=== PATIENT | female | born 1950 | race Caucasian/White ===

== ENCOUNTER 2017-01-16 19:32 | Inpatient (IN) ==
[2017-01-16] MEDS ORDERED: ASPIRIN PO STA (19:52)
[2017-01-16 20:02] LABS: MANUAL DIFF NEEDED? NO
[2017-01-16 20:07] LABS: BASO% 0.2 % (0.0-0.8); EOS# 0.15 X1000 (0.0-0.7); EOS% 1.3 % (0.0-10.0); HEMATOCRIT 31.4 % (37.0-47.0); HEMOGLOBIN 9.8 g/dL (12.0-16.0); IMM GRAN# 0.03 X1000 (0.0-0.04); IMM GRAN% 0.3 % (0.0-0.5); LYMPH# 0.99 X1000 (1.2-3.4); LYMPH% 8.7 % (20.5-51.1); MCH 28.1 PG (27-31); MCHC 31.2 g/dL (33-37); MONO# 1.27 X1000 (0.11-0.59); MONO% 11.2 % (1.7-9.3); MPV 10.5 FL (7.4-10.4); NEUT% 78.3 % (42.2-75.2); PLT 137 X1000 (130-400); RBC 3.49 XMIL (4.2-5.4)
[2017-01-16 20:23] LABS: ALBUMIN 3.7 g/dL (3.5-5.0); CALCIUM 9.5 mg/dL (8.8-10.2); INR 0.93 (0.86-1.15); MAGNESIUM 2.1 mg/dL (1.5-2.7); POTASSIUM 3.8 mmol/L (3.5-5.1); PROTIME 13.2 Seconds (12.1-15.5); TOTAL BILIRUBIN 0.4 mg/dL (0.20-1.00); TOTAL PROTEIN 7.4 g/dL (6.3-8.3)
[2017-01-16 20:24] LABS: PTT PL 31.6 Seconds (22.6-43.9)
--- NOTE | 2017-01-16 20:30 | Diag Imaging Result Doc PS360 ---
CHEST-2 VIEWS - 01/16/2017 INDICATION: CP TECHNIQUE: COMPARISON: None FINDINGS: There is a right dialysis catheter with the distal tip at the cavoatrial junction. Lung volumes are low. There is left lower lobe infiltrate in the posterior costophrenic angle best seen on the lateral view. Heart size and pulmonary vascularity are top normal. No pneumothorax or large effusion. IMPRESSION: Left lower lobe infiltrate compatible with pneumonia. Electronically signed by Jason Terrell 01/16/2017 8:28 PM
[2017-01-16] MEDS ORDERED: MORPHINE IV ONE ×2 (20:49→22:39)
[2017-01-16] MEDS ORDERED: ZOFRAN IV ONE (20:49)
[2017-01-16] MEDS ORDERED: SOLU-MEDROL IV ONE (20:56)
[2017-01-16] MEDS ORDERED: SODIUM CHLORIDE 0.9% INJ ONE (20:56)
[2017-01-16] MEDS ORDERED: BENADRYL IV ONE (20:56)
[2017-01-16] MEDS ORDERED: PEPCID IV ONE (20:56)
--- NOTE | 2017-01-16 22:21 | EKG Report ---
Test Performed on : 01/16/2017 7:35:35 PM Test Reason : CHEST PAIN Blood Pressure : / mmHG Vent. Rate : 089 BPM Atrial Rate : 089 BPM P-R Int : 126 ms QRS Dur : 074 ms QT Int : 342 ms P-R-T Axes : 054 045 066 degrees QTc Int : 416 ms Normal sinus rhythm. Cannot rule out Anterior infarct , age undetermined Abnormal ECG No previous ECGs available Unconfirmed Result
[2017-01-16] MEDS ORDERED: ROCEPHIN 1 GM in NS 50 ML IV ONE (22:39)
[2017-01-16] MEDS ORDERED: ZITHROMAX 500 MG/NS 500 MG/250 ML IVPB IV ONE (22:39)
--- NOTE | 2017-01-16 23:37 | PROVIDER DOCUMENTATION ---
This chart was entered by Belia Huggins Scribe, acting as scribe for Gomez Crowe MD. HPI-Chest Pain - General Chief Complaint: Chest Pain Stated Complaint: CHEST PAIN Time Seen by Provider: 01/16/17 19:59 Source: patient Allergies/Adverse Reactions: Patient Allergies Allergy/AdvReac Type Severity Reaction Status Date / Time Iodinated Contrast- Oral and Allergy ANAPHYLAXIS Verified 01/16/17 19:44 IV Dye [IV Dye] Home Medications: Home Medication List Medication Instructions Recorded Confirmed Last Taken Type Ergocalciferol (Vitamin D2) 01/16/17 Unknown History [Vitamin D] Ondansetron HCl [Ondansetron HCl] 01/16/17 Unknown History Pantoprazole Sodium [Pantoprazole 01/16/17 Unknown History Sodium] Potassium Chloride 01/16/17 Unknown History Sertraline HCl [Sertraline HCl] 01/16/17 Unknown History Sirolimus [Sirolimus] 01/16/17 Unknown History Ursodiol [Ursodiol] 01/16/17 Unknown History Voriconazole [Vfend] 01/16/17 Unknown History - History of Present Illness-CP Nature of Presenting Problem: pt complains of left shoulder, neck, arm, and lower rib pain x 2-3 days, pt has chronic shortness of breath denies any worsening, no nausea/vomiting, no chest pain, no fevers benign exam Location: reports: shoulder, other (left arm, shoulder, neck and lower rib pain) Chest Pain Radiation: reports: no radiation Quality of Pain: reports: aching Severity in ED: moderate Onset/Duration: 2 days ago Timing: still present Context/Activities at Onset: reports: light activity Modifying Factors: worse with: analgesics, cold/heat therapy, movement Associated Symptoms: reports: shortness of breath (chronic shortness of breath, no worsening). denies: abdominal pain, back pain, dizziness, fever/chills, headache, nausea Nitro Today/Relief: no nitro taken today Aspirin Treatment Today: no aspirin today Prior Chest Pain/Cardiac Workup: reports: no prior chest pain Similar Symptoms Previously?: No Recently Seen Here or By Another Healthcare Provider: No Review of Systems - Adult - REVIEW OF SYSTEMS - ADULT Constitutional: denies: fever Eyes: denies: decreased vision, blurred vision, double vision Ears, Nose, Mouth & Throat: reports: no symptoms reported Cardiovascular: denies: chest pain, syncope Respiratory: reports: shortness of breath. denies: cough Gastrointestinal: denies: abdominal pain, nausea, vomiting Genitourinary: denies: dysuria, frequency Musculoskeletal: reports: neck pain. denies: back pain, muscle aches Integumentary: denies: itching, rash Neurological: denies: dizziness/vertigo, headache/migraines Psychiatric: reports: no symptoms reported Endocrine: reports: no symptoms reported Hematologic/Lymphatic: reports: no symptoms reported Allergic/Immunologic: reports: no symptoms reported All Other Systems: Reviewed and Negative Past History - Adult - PAST MEDICAL HISTORY-ADULT Review of Records: reports: Old Records Reviewed, Nursing Assessment Review, Medications Reviewed, Social history reviewed & non-contributory. Major Childhood Illnesses: reports: denies history Cardiovascular: reports: denies history Respiratory: reports: denies history Gastrointestinal: reports: denies history Obstetrical/Gynecological: reports: denies history Genitourinary: reports: denies history Musculoskeletal: reports: denies history Neurological: reports: denies history Endocrine/Immune: reports: denies history Other Conditions: reports: denies history - IMMUNIZATION STATUS Childhood Immunizations: See Nurse Assessment Flu Vaccine: See Nurse Assessment - FAMILY HISTORY Family History: reviewed, not pertinent Physical Exam-General - PHYSICAL EXAM-ADULT Initial Vital Signs Reviewed: Yes - CONSTITUTIONAL General Appearance: appears well, alert, no apparent distress - EYES Eyes: PERRL/EOMI - HEAD, EARS, NOSE, MOUTH & THROAT HENMT: normocephalic/atraumatic, moist mucous membranes, normal ENT inspection - NECK Neck: non-tender, full range of motion, supple, normal inspection - RESPIRATORY Respiratory: chest non-tender, lungs clear, normal breath sounds, no pleuratic chest pain, no respiratory distress, no accessory muscle use - CARDIOVASCULAR Cardiovascular: normal peripheral pulses, regular rate, rhythm - GASTROINTESTINAL (ABDOMEN) Abdominal Exam: normal bowel sounds, non tender, soft - LYMPHATIC Lymphatic: no adenopathy - MUSCULOSKELETAL Back Exam: normal inspection, no CVA tenderness, no vertebral tenderness Extremity: normal range of motion, non-tender, normal gait, normal inspection - SKIN Integumentary: normal color, normal turgor, warm/dry - NEUROLOGIC Neurologic: grossly normal - PSYCHIATRIC Psych/Mental Status: normal mood/affect Progress - PLAN OF CARE/RESULTS Progress/Plan/Lab Results: Vital Signs - 8 hr 01/16/17 19:34 01/16/17 23:16 Temperature 99.7 F H Pulse Rate 93 H 79 Respiratory Rate 23 14 Blood Pressure 174/115 133/94 O2 Sat by Pulse Oximetry 95 96 Laboratory Results - last 24 hr 01/16/17 01/16/17 01/16/17 19:41 19:41 19:41 WBC RBC Hgb Hct MCV MCH MCHC RDW Std Deviation Plt Count MPV Immature Gran % (Auto) Neut % (Auto) Lymph % (Auto) [place] % (Auto) Eos % (Auto) Baso % (Auto) Immature Gran # (Auto) Neut # (Auto) Lymph # (Auto) [place] # (Auto) Eos # (Auto) Baso # (Auto) PT INR APTT (Factor Assay) Sodium 133 L Potassium 3.8 Chloride 96 L Carbon Dioxide 23 L Anion Gap 14 BUN 21 Creatinine 1.7 H Estimated GFR/1.73 m2 30 BUN/Creatinine Ratio 12 Glucose 170 H Calculated Osmolality 273 Calcium 9.5 Magnesium 2.1 Total Bilirubin 0.40 AST 32 H ALT 23 Alkaline Phosphatase 140 H Creatine Kinase 46 Troponin T < 0.010 Oly-K-Qljojxwtgoy Pept 626 H Total Protein 7.4 Albumin 3.7 Globulin 4.0 Albumin/Globulin Ratio 1.0 01/16/17 01/16/17 19:41 19:41 WBC 11.35 H RBC 3.49 L Hgb 9.8 L Hct 31.4 L MCV 90.0 MCH 28.1 MCHC 31.2 L RDW Std Deviation 18.5 H Plt Count 137 MPV 10.5 H Immature Gran % (Auto) 0.3 Neut % (Auto) 78.3 H Lymph % (Auto) 8.7 L [place] % (Auto) 11.2 H Eos % (Auto) 1.3 Baso % (Auto) 0.2 Immature Gran # (Auto) 0.03 Neut # (Auto) 8.89 H Lymph # (Auto) 0.99 L [place] # (Auto) 1.27 H Eos # (Auto) 0.15 Baso # (Auto) 0.02 PT 13.2 INR 0.93 APTT (Factor Assay) 31.6 Sodium Potassium Chloride Carbon Dioxide Anion Gap BUN Creatinine Estimated GFR/1.73 m2 BUN/Creatinine Ratio Glucose Calculated Osmolality Calcium Magnesium Total Bilirubin AST ALT Alkaline Phosphatase Creatine Kinase Troponin T Sca-U-Uycdgcenngz Pept Total Protein Albumin Globulin Albumin/Globulin Ratio Orders Category Date Time Status Cardiac Monitoring DIRECTED Care 01/16/17 19:52 Active Misc. NRSG Communication Order DIRECTED Care 01/16/17 19:53 Active Oxygen Therapy- ED Nursing DIRECTED Care 01/16/17 19:52 Active Saline Loc NOW Care 01/16/17 19:52 Active CHEST-2 VIEWS [RAD] Stat Exams 01/16/17 19:[address] THORAX W/O CONTRAST [CT] Stat Exams 01/16/17 21:47 Taken BLOOD CULTURE [BLDCUL] Stat Lab 01/16/17 22:39 Ordered CBC WITH ELECTRONIC DIFF [HEME] Stat Lab 01/16/17 19:41 Completed CK PROFILE [SP CHEM] Stat Lab 01/16/17 19:41 Completed COMPREHENSIVE METABOLIC PANEL [CHEM] Stat Lab 01/16/17 19:41 Completed MAGNESIUM [CHEM] Stat Lab 01/16/17 19:41 Completed PRO B-NATRIURETIC PEPTIDE Stat Lab 01/16/17 19:41 Completed [address]IME WITH INR PL [COAG] Stat Lab 01/16/17 19:[address] [COAG] Stat Lab 01/16/17 19:41 Completed TROPONIN T Stat Lab 01/16/17 19:41 Completed Aspirin Med 01/16/17 19:52 Discontinued 325 mg PO STAT STA Azithromycin 500 mg/Ns [Zithromax 500 mg/Ns] Med 01/16/17 22:39 Active 500 mg in 250 ml IV NOW CefTRIAXONE [Rocephin] 1 gm Med 01/16/17 22:39 Discontinued 0.9% Sodium Chloride Inj [Ns] 50 ml IV NOW Diphenhydramine [Benadryl] Med 01/16/17 20:56 Discontinued 25 mg IV NOW ONE Famotidine [Pepcid] Med 01/16/17 20:56 Discontinued 20 mg IV NOW ONE Methylprednisolone Sod Succ [Solu-Medrol] Med 01/16/17 20:56 Discontinued 125 mg IV NOW ONE Morphine Med 01/16/17 20:49 Discontinued 4 mg IV NOW ONE Morphine Med 01/16/17 22:39 Discontinued 4 mg IV NOW ONE Ondansetron [Zofran] Med 01/16/17 20:49 Discontinued 4 mg IV NOW ONE Sodium Chloride 0.9% Med 01/16/17 20:56 Discontinued 5 - 10 ml INJ NOW ONE EKG [EKG] Stat Ther 01/16/17 19:52 Draft Result Diagrams: 01/16/17 19:41 01/16/17 19:41 - EKG 1 Time of EKG reading by physician:: 19:35 EKG Read and Signed by:: Gomez Crowe EKG Interpretation (*Must complete 3 of following elements*): Abnormal Rate: 89 Rhythm: nsr [place]: normal QRS: poor R wave progression AR Interval: normal ST Wave: normal - XRAY 1 XRAY Study: Chest Impression: Abnormal Comparison with other Films: no prior study XRAY Interpretation: left lower lobe infiltrate compatablie with pnuemonia - CT/MRI 1 CT Study: Thorax Impression: Abnormal CT Results: left lower lobe pnuemonia Departure - Departure Date of Disposition Decision: 01/16/17 Time of Disposition Decision: 23:34 DIAGNOSIS: Pneumonia Disposition: ADMITTED INPATIENT 09 Certified Medical Emergency: Emergent Condition: Serious Referrals and Follow-Ups: Andrea Armstrong MD [Primary Care Provider] - - Critical Care Note This patient required my direct & personal management of CC.: No Attestation - Physician/ TETO Attestation Patient care was provided by Advanced Practice Provider:: No The physician spent face to face time with patient:: Yes Advanced Practice Provider documentation review:: Supervising physician onsite and consulted in the evaluation and care of this patient. The physician did have a face to face encounter with the patient. This chart was documented by the indicated scribe, (Belia Huggins Scribe) and accurately reflects the services I performed and decisions made by Sebastien tsang Kevin F., MD, as attested by the provider's signature.
[2017-01-16] MEDS ORDERED: ZOFRAN IV PRN (23:38)
--- NOTE | 2017-01-17 08:17 | Diag Imaging Result Doc PS360 ---
CT THORAX W/O CONTRAST - 01/16/2017 INDICATION: left sided rib pain, infiltrate, lymphoma TECHNIQUE: A CT dose reduction protocol was used. COMPARISON: None FINDINGS: There is a right dialysis catheter in good position. Heart and great vessels are normal. There are gastric bypass changes. No acute disease or complication in the abdomen. No mass or adenopathy. There is ill-defined infiltrate throughout the left lower lobe. There is a trace left pleural effusion. There is some linear atelectasis in the lung bases bilaterally. There are some old left rib deformities compatible with healed fractures. There are moderate degenerative changes of the spine. No acute or suspicious bony lesion. IMPRESSION: Left lower lobe infiltrate with trace effusion. Compatible with pneumonia. Electronically signed by Jason Terrell 01/17/2017 8:14 AM
[2017-01-17] MEDS ORDERED: ZOFRAN IV PRN (09:32)
[2017-01-17] MEDS ORDERED: NS 1,000 ML IV SCH (10:19)
[2017-01-17] MEDS: MORPHINE IV PRN (11:34)
[2017-01-17] MEDS ORDERED: PERICOLACE PO PRN (14:46)
[2017-01-17] MEDS ORDERED: VITAMIN D PO SCH (15:00)
[2017-01-17 15:34] LABS: CALCIUM 8.8 mg/dL (8.8-10.2)
--- NOTE | 2017-01-17 15:36 | HISTORY AND PHYSICAL ---
ADDENDUM: The patient presented to the emergency department secondary to chest pain, left arm pain, left side pain and left rib pain. She was subsequently diagnosed with left lower lobe pneumonia. She has an extensive recent medical history, to include lymphoma and stem-cell treatment. She then developed owusv-rtwura-lpje disease, and has been receiving photopheresis for the last several months. Her last treatment was approximately 6 weeks ago. She has a known history of chronic renal failure, although notes her serum creatinine is not typically 1.7. PHYSICAL EXAMINATION: GENERAL: She is awake, alert, pleasant to talk with. NECK: Supple. CARDIOVASCULAR: Regular rate. CHEST: Clear. ABDOMEN: Soft. PLAN: We will admit the patient the patient hospital, treat her for left lower lobe pneumonia. Continue antibiotics. We will give her 1 normal saline bolus. Recheck labs in the a.m. and, hopefully, home in the a.m. The patient seen and examined by me. Full note dictated by nurse practitioner. cc: Arturo Portillo MD
[2017-01-17] MEDS: ACTIGALL PO SCH (17:09)
[2017-01-17] MEDS ORDERED: MIRALAX PO PRN (17:53)
--- NOTE | 2017-01-17 20:15 | HISTORY AND PHYSICAL ---
CHIEF COMPLAINT: Chest pain and left arm pain x 5 days. HISTORY OF PRESENT ILLNESS: This is a 66-year-old female with a history of lymphoma with recent stem cell transplant followed by a [id number]-[id number]-hflv, who received photophoresis 6 weeks ago and will be seen in 2 weeks at [facility] regarding future treatment. She presents to the emergency room complaining of chest pain and left arm pain that she has had for about 5 days. She was diagnosed with left lower lobe pneumonia. Blood cultures were drawn. She was given Zithromax and Rocephin in the emergency room and she is being admitted for further evaluation and treatment. PAST MEDICAL HISTORY: Lymphoma, status post stem cell transplant with pgylh-grermf-blbw, and atrial fibrillation. PAST SURGICAL HISTORY: Appendectomy, cholecystectomy, hernia repair, tonsillectomy, I and D of pilonidal cyst, gastric bypass, stem-cell transplant, port placement. SOCIAL HISTORY: Denies alcohol, tobacco, or illicit drug use. ALLERGIES: IV contrast and oral contrast which cause anaphylaxis. HOME MEDICATIONS: A list will be obtained. REVIEW OF SYSTEMS: A 14 point review of systems is discussed with the patient with pertinent positives being stated in the HPI. She denied any increase in her shortness of breath, which is chronic, any cough, fever, chills, headache, nausea, vomiting, diarrhea, constipation, black or bloody vomitus, black or bloody stools. PHYSICAL EXAMINATION: GENERAL: This is a 66-year-old female who is sitting up in the bed, in no distress. VITAL SIGNS: Blood pressure is 140/67, heart rate of 60, respirations are 20, temperature is 97.8 degrees oral with room air saturations 96-98%. HEENT: Head is normocephalic, atraumatic. Pupils equal, round, react to light. EOMs are intact. Sclerae anicteric. Mucous membranes are moist. NECK: Supple with trachea midline. CARDIOVASCULAR: Regular rate and rhythm. S1 and S2 appreciated. PULMONARY: Breath sounds are clear with no increased work of breathing noted. GASTROINTESTINAL: Abdomen is soft, nontender, nondistended. Bowel sounds in all 4 quadrants. EXTREMITIES: No clubbing, cyanosis, or edema. Calves are nontender. Pulses are palpable x 4. NEUROLOGIC: She is alert oriented x 3. DIAGNOSTICS: WBC is 11.3 with hemoglobin 9.8, hematocrit 31.4, and platelets of 137,000. Sodium 13,3 potassium 3.8, BUN 21, creatinine 1.7 with a glucose of 170. CT of the chest revealed left lower lobe infiltrate with trace effusion. ASSESSMENT AND PLAN: 1. Left lower lobe pneumonia. 2. Leukocytosis secondary to #1. 3. Anemia of chronic disease. 4. Acute kidney injury on chronic kidney disease. 5. History of atrial fibrillation. 6. Hypertension. 7. Stem cell transplant currently ognpn-pvlsaf-gici disease receiving photophoresis per MD Bello. PLAN: She will be admitted to the hospital. We will place her on telemetry. We will identify her home medications and continue as appropriate. Of course, we will continue her antirejection medications. Blood cultures were drawn in the emergency room. We will continue Zithromax and Omnicef. We will hold any renal toxic medications. Give gentle hydration and repeat labs in the morning. Further treatments pending hospital course. Dictated by GISSEL Willard for Arturo Portillo MD cc: GISSEL Willard MD
[2017-01-17] MEDS ORDERED: PROTONIX PO SCH (21:00)
[2017-01-17] MEDS ORDERED: RESTORIL PO SCH (21:00)
[2017-01-17] MEDS ORDERED: ZITHROMAX PO SCH (21:00)
[2017-01-17] MEDS ORDERED: CEFPODOXIME PROXETIL 200 MG PO SCH (21:00)
[2017-01-17] MEDS ORDERED: OMNICEF PO SCH (21:00)
[2017-01-17] MEDS: PERIDEX MT SCH (22:29)
[2017-01-17] MEDS: VFEND PO SCH (22:30)
[2017-01-17] MEDS: CORTEF PO SCH (22:32)
[2017-01-17] MEDS: PERICOLACE PO SCH (22:32)
[2017-01-17] MEDS: VOLTAREN 1% GEL TOP SCH (22:41)
[2017-01-17] MEDS: KENALOG 0.1% CREAM TOP SCH (22:42)
[2017-01-17] MEDS ORDERED: ROCEPHIN 1 GM in NS 50 ML IV SCH (23:00)
[2017-01-18] MEDS: MORPHINE IV PRN (02:02)
[2017-01-18 06:05] LABS: HEMATOCRIT 28.4 % (37.0-47.0); HEMOGLOBIN 8.6 g/dL (12.0-16.0); MCH 27.6 PG (27-31); MCHC 30.3 g/dL (33-37); MPV 10.5 FL (7.4-10.4); RBC 3.12 XMIL (4.2-5.4)
[2017-01-18 06:56] LABS: AGAP 13; ALBUMIN 3.1 g/dL (3.5-5.0); ALKALINE PHOSPHATASE 119 U/L (32-104); BUN 28 mg/dL (8-22); CALCIUM 8.4 mg/dL (8.8-10.2); CHLORIDE 105 mmol/L (98-107); COSMO 292; GOT 21 U/L (10-30); GPT 20 U/L (10-36); POTASSIUM 3.4 mmol/L (3.5-5.1); SODIUM 138 mmol/L (136-145); TCO2 20 mmol/L (25-35); TOTAL BILIRUBIN < 0.15 mg/dL (0.20-1.00); TOTAL PROTEIN 6.5 g/dL (6.3-8.3)
[2017-01-18 07:26] VITALS: BP 140/70
[2017-01-18] MEDS ORDERED: PROTONIX PO SCH (07:30)
[2017-01-18] MEDS ORDERED: NORCO-5 PO PRN (07:50)
[2017-01-18] MEDS ORDERED: OMNICEF PO SCH (09:00)
[2017-01-18] MEDS ORDERED: PATIENT'S OWN MED PO SCH (09:00)
[2017-01-18] MEDS ORDERED: ZOLOFT PO SCH (09:00)
[2017-01-18] MEDS ORDERED: KLOR-CON PO SCH (09:00)
[2017-01-18] MEDS ORDERED: MEPRON PO SCH ×2 (09:00)
[2017-01-18] MEDS ORDERED: VALTREX PO SCH (09:00)
[2017-01-18] MEDS ORDERED: FOLIC ACID PO SCH (09:00)
[2017-01-18] MEDS: VOLTAREN 1% GEL TOP SCH (09:15)
[2017-01-18] MEDS: VFEND PO SCH (09:15)
[2017-01-18] MEDS: KENALOG 0.1% CREAM TOP SCH (09:16)
[2017-01-18] MEDS: CORTEF PO SCH (09:17)
[2017-01-18] MEDS: PERICOLACE PO SCH (09:17)
[2017-01-18] MEDS: ACTIGALL PO SCH (09:18)
[2017-01-18] MEDS: PERIDEX MT SCH (09:30)
--- NOTE | 2017-01-19 03:18 | DISCHARGE SUMMARY ---
ADMISSION DATE: 01/16/2017 DISCHARGE DATE: 01/18/2017 PRIMARY CARE PHYSICIAN: Dr. Andrea Armstrong. ADMISSION DIAGNOSES: 1. Left lower lobe pneumonia. 2. Leukocytosis secondary to #1. 3. Anemia of chronic disease. 4. Acute kidney injury on chronic kidney disease. 5. History of atrial fibrillation. 6. Hypertension. 7. Stem cell transplant, currently fokeh-zejjia-qxts disease, receiving photopheresis per MD Bello. DISCHARGE DIAGNOSES: 1. Left lower lobe pneumonia. 2. Leukocytosis secondary to #1. 3. Anemia of chronic disease. 4. Acute kidney injury on chronic kidney disease. 5. History of atrial fibrillation. 6. Hypertension. 7. Stem cell transplant, currently gfxsm-rzonko-pgzd disease, receiving photopheresis per [facility]. SUMMARY OF FINDINGS: This is a 66-year-old female with a history of lymphoma and a recent stem cell transplant, followed by kkpnt-vetmuf-jmno, who received photopheresis 6 weeks ago and will be seen in 2 weeks at [facility]. Presented to the emergency room complaining of chest pain and left arm pain that she had for about 5 days. Was diagnosed with a left lower lobe pneumonia. Placed on IV antibiotics. Has remained afebrile for greater than 24 hours. Kidney function has improved from 1.7 on arrival creatinine to 1.5 today. Her white cells are elevated at 15.98 but this may be secondary to her prednisone usage. We did a chest CT on 01/16/2017 that showed the left lower lobe infiltrate compatible with pneumonia. It is now felt that she can safely be discharged home. DISCHARGE MEDICATIONS: Atovaquone 750 mg per 5 mL. She takes 10 mL p.o. daily. She was given a prescription for Zithromax 500 mg p.o. at bedtime, #5 with no refills. Peridex 15 mL p.o. b.i.d., diclofenac 1% gel topically 4 times daily, vitamin D2 50,000 units 1 p.o. as directed, folic acid 1 mg p.o. daily, heparin IV flush 100 units IV daily, hydrocortisone 10 mg p.o. b.i.d., pantoprazole 40 mg p.o. b.i.d., MiraLAX 17 g p.o. p.r.n., potassium 10-20 mEq p.o. daily, prednisone 5 mg p.o. as directed, Senokot-S 2 tablets p.o. daily p.r.n., sertraline 100 mg p.o. daily, sirolimus 0.5 mg p.o. daily, temazepam 15 mg p.o. at bedtime, Kenalog 0.1% cream topically b.i.d., ursodiol 300 mg p.o. t.i.d., valacyclovir 500 mg p.o. daily, voriconazole 200 mg p.o. b.i.d. She also will have a prescription for cefdinir 300 mg p.o. b.i.d., #10 with no refills, Edna 5 one p.o. q.6 hours p.r.n., #15 with no refills. She will continue her hydrocortisone/pramoxine 1% cream topically b.i.d., ondansetron 8 mg p.o. q.8 hours p.r.n., and Artificial Tears 1 drop to both eyes t.i.d. FOLLOWUP: She will follow up with her primary care physician in 1-2 weeks and will keep her appointment with MD Bello as scheduled in the next 2 weeks. A 35 minute discharge. Dictated by GISSEL Weiss for Arturo Portillo MD cc: GISSEL Weiss MD Micah A. Howard, MD
--- NOTE | 2017-01-19 06:23 | DISCHARGE SUMMARY ---
ADMISSION DATE: 01/16/2017 DISCHARGE DATE: 01/18/2017 DISCHARGE ADDENDUM: Patient seen and examined this morning. She is in no distress. She is feeling better. Notes that she is ready to go home. She is having no further cough, no congestion, no shortness of breath. She will be discharged home. She will continue on antibiotics for a total of 7 days at home and will follow up outpatient with Dr. Armstrong. cc: Arturo Portillo MD
[2017-01-19] MEDS ORDERED: PREDNISONE PO SCH (09:00)
[2017-01-23] MEDS ORDERED: VITAMIN D PO SCH (09:00)
== END 2017-01-18 10:26 | disposition home or self-care (01) ==
LOC: P.ED 19:32 → P.MEDSURG 19:33
PROVIDERS: ATTEND Family Medicine